=== PATIENT | female | born 1955 | race Caucasian/White ===

== ENCOUNTER 2017-06-05 13:41 | Emergency (ER) | payer OTHER ==
[~2017-06-05] VITALS: Ht 157.5 cm; Wt 65.8 kg
[~2017-06-05 13:41] MED LIST: GLIP10TA3 PO
[2017-06-05 13:43] VITALS: BP 145/85
--- NOTE | 2017-06-05 13:46 | NUR ---
Patient transferred to bed 10 via wheelchair. RN evaluating patient at bedside.
--- NOTE | 2017-06-05 13:50 | NUR ---
61/F BIB C/O LANG& DIZZINESS SINCE YESTERDAY WHEN GETTING UP FROM BED WITH N/V. HX DM, HIGH CHOLESTEROL. SKIN IS PINK/WARM/DRY; AAOX4 WITH EVEN AND STEADY GAIT; LUNGS CLEAR BL; PT DENIES ANY FEVER, CP, SOB, OR COUGH AT THIS TIME; PATIENT STATES PAIN OF 5/10 AT THIS TIME; PATIENT POSITIONED FOR COMFORT; HOB ELEVATED; BEDRAILS UP X2; BED DOWN. ER MD MADE AWARE OF PT STATUS.
--- NOTE | 2017-06-05 14:15 | NUR ---
Dr. Aguilera at bedside evaluating patient.
[2017-06-05 14:19] LABS: BASOPHILS # (AUTO) 0.1 K/uL (0.00-0.22); BASOPHILS % (AUTO) 1.4 % (0.0-2.0); EOSINOPHILS # (AUTO) 0.2 K/uL (0-0.4); EOSINOPHILS % (AUTO) 3.1 % (0.0-4.0); HEMATOCRIT 36.1 % (36-48); LYMPHOCYTES # (AUTO) 2.4 K/uL (2.5-16.5); LYMPHOCYTES % (AUTO) 32.7 % (20.5-51.1); MEAN CORPUSCULAR HEMOGLOBIN 29 pg (27-31); MEAN CORPUSCULAR HGB CONC 33 g/dL (33-37); MEAN CORPUSCULAR VOLUME 87 fL (80-94); MONOCYTES # (AUTO) 0.5 K/uL (0.8-1.0); MONOCYTES % (AUTO) 6.6 % (1.7-9.3); NEUTROPHILS # (AUTO) 4.3 K/uL (1.8-7.7); NEUTROPHILS % (AUTO) 56.2 % (42.2-75.2); PLATELET COUNT (AUTO) 272 K/uL (140-450); RED BLOOD CELL COUNT(AUTO) 4.16 MIL/uL (4.20-5.40); RED CELL DISTRIBUTION WIDTH 12.8 % (11.6-13.7); WHITE BLOOD COUNT (AUTO) 7.5 K/uL (4.8-10.8)
[2017-06-05] MEDS ORDERED: LORazepam 0.5 MG TAB PO ONE (14:20)
[2017-06-05] MEDS ORDERED: MECLIZINE 25 MG TAB PO ONE (14:20)
[2017-06-05 14:37] LABS: ACETONE, SERUM NEGATIVE (NEGATIVE)
[2017-06-05 14:41] LABS: LIPASE 86 U/L (73-393)
[2017-06-05 15:05] LABS: ANION GAP 13.2 (8-16); CARBON DIOXIDE 25.3 mmol/L (21-32); CREATININE 0.6 mg/dL (0.6-1.3); POTASSIUM 3.5 mmol/L (3.5-5.1)
[2017-06-05 15:12] LABS: ALBUMIN 3.4 g/dL (3.4-5.0); TOTAL BILIRUBIN 0.5 mg/dL (0.0-1.0)
[2017-06-05 15:55] VITALS: BP 150/68
--- NOTE | 2017-06-05 15:55 | NUR ---
Patient discharged with BP 150/68; HA3/10 AT THIS TIME, MD MADE AWARE. Written and verbal after care instructions given and explained. Patient alert, oriented and verbalized understanding of instructions. Ambulatory with steady gait. All questions addressed prior to discharge. ID band removed. Patient advised to follow up with PMD. Rx of MECLIZINE given. Patient educated on indication of medication including possible reaction and side effects. Opportunity to ask questions provided and answered.
== END 2017-06-05 15:55 | disposition home or self-care (01) ==
LOC: MED 13:41
DX: H81.10 Benign paroxysmal vertigo, unspecified ear (principal); R11.2 Nausea with vomiting, unspecified; R05 Cough; E11.9 Type 2 diabetes mellitus without complications; E78.00 Pure hypercholesterolemia, unspecified; Z79.84 Long term (current) use of oral hypoglycemic drugs
CPT/HCPCS: 36415; 80053; 82009; 82948; 83690; 83880; 84484; 85025; 99284; J8597

== ENCOUNTER 2018-01-04 17:45 | Emergency (ER) | payer OTHER ==
[~2018-01-04] VITALS: Ht 157.5 cm; Wt 68.9 kg
[2018-01-04 17:50] VITALS: BP 111/68
--- NOTE | 2018-01-04 18:00 | NUR ---
PT W/C TO BED 11. REPORTED GIVEN TO RAJESH ZAMARRIPA.
--- NOTE | 2018-01-04 18:02 | NUR ---
PATIENT PRESENTS TO ED WITH C/O LEFT KNEE PAIN & SWELLING X TODAY. PT TRIPPED OVER METAL BAR & FELL. AAOX4 WITH EVEN AND STEADY GAIT; LUNGS CLEAR BL; HR EVEN AND REGULAR; PT DENIES ANY FEVER, CP, SOB, OR COUGH AT THIS TIME; SKIN IS PINK/WARM/DRY;PATIENT STATES PAIN OF 5/10 AT THIS TIME; VSS; PATIENT POSITIONED FOR COMFORT; HOB ELEVATED; BEDRAILS UP X2; BED DOWN. ER MD MADE AWARE OF PT STATUS.
[2018-01-04] MEDS ORDERED: KETOROLAC 60 MG/2 ML VIAL IM ONE (18:15)
[2018-01-04] MEDS ORDERED: HYDROcodone/APAP 5/325 MG 1 TAB TAB PO ONE (18:15)
--- NOTE | 2018-01-04 18:23 | NUR ---
X RAY AT BEDSIDE
--- NOTE | 2018-01-04 18:46 | NUR ---
Patient being reevaluated by DR ERAZO at bedside.
[2018-01-04 19:00] VITALS: BP 110/68
--- NOTE | 2018-01-04 19:00 | NUR ---
Patient discharged with v/s stable. Written and verbal after care instructions given and explained. Patient alert, oriented and verbalized understanding of instructions. Ambulatory with steady gait. All questions addressed prior to discharge. ID band removed. Patient advised to follow up with PMD. Rx of NORCO, NAPROSYN given. Patient educated on indication of medication including possible reaction and side effects. Opportunity to ask questions provided and answered.
== END 2018-01-04 19:00 | disposition home or self-care (01) ==
LOC: MED 17:45
DX: S80.02XA Contusion of left knee, initial encounter (principal); R07.89 Other chest pain; E11.9 Type 2 diabetes mellitus without complications; Z79.84 Long term (current) use of oral hypoglycemic drugs; Z90.49 Acquired absence of other specified parts of digestive tract; W18.09XA Striking against other object with subsequent fall, initial encounter; Y93.89 Activity, other specified; Y92.89 Other specified places as the place of occurrence of the external cause; Y99.8 Other external cause status
CPT/HCPCS: 29515; 73562; 96372; 99284; J1885; Q0092

== ENCOUNTER 2018-06-06 14:12 | Emergency (ER) | payer OTHER ==
[~2018-06-06] VITALS: Ht 154.9 cm; Wt 70.8 kg
[2018-06-06 14:29] VITALS: BP 156/74
[2018-06-06] MEDS ORDERED: IBUPROFEN 400 MG TAB PO ONE (15:20)
[2018-06-06] MEDS ORDERED: HYDROcodone/APAP 5/325 MG 1 TAB TAB PO ONE (15:20)
--- NOTE | 2018-06-06 15:31 | NUR ---
PT TO X-RAY VIA WC
--- NOTE | 2018-06-06 15:41 | NUR ---
PATIENT PRESENTS TO ED WITH BROUGHT IN BY FAMILY PT C/O CONTINUOUS PAIN S/P MECHANICAL FALL YESTERDAY; PAIN TO RIGHT SIDE KNEE / BACK/ ABDOMEN ---DENIES N/V/D; SKIN IS PINK/WARM/DRY; AAOX4 WITH EVEN AND STEADY GAIT; LUNGS CLEAR BL; HR EVEN AND REGULAR; PT DENIES ANY FEVER, CP, SOB, OR COUGH AT THIS TIME; PATIENT STATES PAIN OF 8/10 AT THIS TIME; VSS; PATIENT POSITIONED FOR COMFORT; HOB ELEVATED; BEDRAILS UP X2; BED DOWN. ER MD MADE AWARE OF PT STATUS.
--- NOTE | 2018-06-06 15:55 | NUR ---
RETURNED FROM RADIOLOGY VIA
--- NOTE | 2018-06-06 17:50 | NUR ---
Patient discharged with v/s stable. Written and verbal after care instructions given and explained. Patient alert, oriented and verbalized understanding of instructions. Ambulatory with steady gait. All questions addressed prior to discharge. ID band removed. Patient advised to follow up with PMD. Rx of NORCO/NAPROSYN given. Patient educated on indication of medication including possible reaction and side effects. Opportunity to ask questions provided and answered.
[2018-06-06 17:51] VITALS: BP 134/81
== END 2018-06-06 17:50 | disposition home or self-care (01) ==
LOC: MED 14:12
DX: S20.20XA Contusion of thorax, unspecified, initial encounter (principal); S30.0XXA Contusion of lower back and pelvis, initial encounter; E11.9 Type 2 diabetes mellitus without complications; I10 Essential (primary) hypertension; Z90.49 Acquired absence of other specified parts of digestive tract; Z79.84 Long term (current) use of oral hypoglycemic drugs; W19.XXXA Unspecified fall, initial encounter; Y93.89 Activity, other specified; Y92.89 Other specified places as the place of occurrence of the external cause; Y99.8 Other external cause status
CPT/HCPCS: 71101; 72100; 81002; 99283; Q0092

== ENCOUNTER 2018-06-10 09:12 | Emergency (ER) | payer OTHER ==
[~2018-06-10] VITALS: Ht 157.5 cm; Wt 70.3 kg
[2018-06-10 09:14] VITALS: BP 119/79
[2018-06-10] MEDS ORDERED: MORPHINE SULFATE 4 MG/ML SYR IM ONE (09:30)
--- NOTE | 2018-06-10 09:30 | NUR ---
62 Y/O F CAME TO ED FOR C/O BACK PAIN. 11/18. S/P FALL 3 DAYS AGO. AMBULATORY. GAIT STEADY BUT AMBSULATES SLOWLY. PER PT AFTER TAKING NORCO SHE IS FINE BUT WHEN SHE GETS UP THE PAIN IS WORSE. NOTIFIED. WILL CONTINUE TO MONITOR.
--- NOTE | 2018-06-10 09:40 | NUR ---
ACCUCHECK DONE. RESUTL 156. AWARE.
[2018-06-10] MEDS ORDERED: DIAZEPAM 5 MG TAB PO ONE (10:25)
--- NOTE | 2018-06-10 11:35 | NUR ---
Patient discharged with v/s stable. Written and verbal after care instructions given and explained. Patient alert, oriented and verbalized understanding of instructions. Ambulatory with steady gait. All questions addressed prior to discharge. ID band removed. Patient advised to follow up with PMD. Rx of Valium given. Patient educated on indication of medication including possible reaction and side effects. Opportunity to ask questions provided and answered.
[2018-06-10 11:37] VITALS: BP 119/79
== END 2018-06-10 11:35 | disposition home or self-care (01) ==
LOC: MED 09:12
DX: M54.5 Low back pain (principal); I10 Essential (primary) hypertension; E11.9 Type 2 diabetes mellitus without complications; Z79.84 Long term (current) use of oral hypoglycemic drugs
CPT/HCPCS: 81002; 96372; 99283; J2270

== ENCOUNTER 2019-11-25 10:23 | Emergency (ER) | payer OTHER ==
[~2019-11-25] VITALS: Ht 157.5 cm; Wt 72.6 kg
[2019-11-25 10:25] VITALS: BP 129/84
--- NOTE | 2019-11-25 10:25 | NUR ---
PRESENTS WITH RLQ PAIN, 5/10 PAIN, PRESSURE SENSATION, NON RADIATING X 3 DAYS. EUPNIC,VSS,AMBULATORY,A/OX4. DIARREAH X 3 DAYS. DENIES DYSURIA,HEMATURIA,HEMATOCHEZIA,HEMATEMESIS. NKA. SIDE RAIL X1 SX GALLBLADDER STONES HX DM
--- NOTE | 2019-11-25 11:41 | NUR ---
Dr. Torres is evaluating the patient at bedside.
--- NOTE | 2019-11-25 11:42 | NUR ---
Patient taken to CT scan via wheelchair by tech.
--- NOTE | 2019-11-25 11:46 | NUR ---
PT TAKEN TO CT VIA WHEELCHAIR
[2019-11-25 12:03] LABS: BASOPHILS # (AUTO) 0.1 K/uL (0.00-0.22); BASOPHILS % (AUTO) 1.4 % (0.0-2.0); EOSINOPHILS # (AUTO) 0.2 K/uL (0-0.4); EOSINOPHILS % (AUTO) 3.8 % (0.0-4.0); HEMATOCRIT 33.4 % (36-48); HEMOGLOBIN 11.2 g/dL (12.0-16.0); LYMPHOCYTES # (AUTO) 2.3 K/uL (2.5-16.5); LYMPHOCYTES % (AUTO) 35.1 % (20.5-51.1); MEAN CORPUSCULAR HEMOGLOBIN 30 pg (27-31); MEAN CORPUSCULAR HGB CONC 34 g/dL (33-37); MEAN CORPUSCULAR VOLUME 89.3 fL (80-94); MONOCYTES # (AUTO) 0.4 K/uL (0.8-1.0); MONOCYTES % (AUTO) 6.9 % (1.7-9.3); NEUTROPHILS # (AUTO) 3.5 K/uL (1.8-7.7); NEUTROPHILS % (AUTO) 52.8 % (42.2-75.2); PLATELET COUNT (AUTO) 314 K/uL (140-450); RED BLOOD CELL COUNT(AUTO) 3.74 MIL/uL (4.20-5.40); RED CELL DISTRIBUTION WIDTH 14.4 % (11.6-13.7); WHITE BLOOD COUNT (AUTO) 6.5 K/uL (4.8-10.8)
[2019-11-25 12:29] LABS: APPEARANCE,URINE CLEAR (CLEAR); BILIRUBIN,URINE NEGATIVE (NEGATIVE); BLOOD, URINE NEGATIVE (NEGATIVE); COLOR,URINE YELLOW (YELLOW); LEUKOCYTE ESTERASE ,URINE NEGATIVE (NEGATIVE); NITRITE, URINE NEGATIVE (NEGATIVE); PH,URINE 6.5 (5.0-9.0); UGLUCOSE NEGATIVE (NEGATIVE)
[2019-11-25 12:44] LABS: ALBUMIN 3.7 g/dL (3.4-5.0); ANION GAP 11.5 (8-16); CARBON DIOXIDE 28.9 mmol/L (21-32); POTASSIUM 5.4 mmol/L (3.5-5.1); TOTAL BILIRUBIN 0.4 mg/dL (0.0-1.0)
[2019-11-25 12:58] VITALS: BP 110/68
--- NOTE | 2019-11-25 12:58 | NUR ---
Patient discharged with v/s stable. Written and verbal after care instructions given and explained in bengali by myself. Copy of labs and CT provided. Patient verbalized understanding. Ambulatory with steady gait. All questions addressed prior to discharge. Advised to follow up with PMD.
== END 2019-11-25 12:58 | disposition home or self-care (01) ==
LOC: MED 10:23
DX: A08.4 Viral intestinal infection, unspecified (principal); E11.9 Type 2 diabetes mellitus without complications; I10 Essential (primary) hypertension; Z79.84 Long term (current) use of oral hypoglycemic drugs
CPT/HCPCS: 36415; 80053; 81003; 82150; 83690; 85025; 99284

== ENCOUNTER 2020-04-30 09:15 | Emergency (ER) | payer OTHER ==
[~2020-04-30] VITALS: Ht 162.6 cm; Wt 70.8 kg
[2020-04-30 09:20] VITALS: BP 151/110
--- NOTE | 2020-04-30 09:23 | NUR ---
PT TAKEN TO BED 7.
--- NOTE | 2020-04-30 09:48 | NUR ---
Dr. Cruz is evaluating the patient at bedside.
[2020-04-30] MEDS: KETOROLAC 15 MG/ML VIAL IVP ONE ×2 (09:50→10:09)
[2020-04-30] MEDS ORDERED: cefTRIAXone 1,000 MG VIAL ONE (10:07)
[2020-04-30 10:14] LABS: BASOPHILS # (AUTO) 0.1 K/uL (0.00-0.22); BASOPHILS % (AUTO) 2.5 % (0.0-2.0); EOSINOPHILS # (AUTO) 0.2 K/uL (0-0.4); EOSINOPHILS % (AUTO) 3.5 % (0.0-4.0); HEMOGLOBIN 10.9 g/dL (12.0-16.0); LYMPHOCYTES # (AUTO) 1.8 K/uL (2.5-16.5); MEAN CORPUSCULAR HEMOGLOBIN 29 pg (27-31); MEAN CORPUSCULAR HGB CONC 33 g/dL (33-37); MEAN CORPUSCULAR VOLUME 87.3 fL (80-94); MONOCYTES # (AUTO) 0.4 K/uL (0.8-1.0); MONOCYTES % (AUTO) 7.8 % (1.7-9.3); NEUTROPHILS % (AUTO) 53.2 % (42.2-75.2); PLATELET COUNT (AUTO) 388 K/uL (140-450); RED BLOOD CELL COUNT(AUTO) 3.78 MIL/uL (4.20-5.40); WHITE BLOOD COUNT (AUTO) 5.6 K/uL (4.8-10.8)
--- NOTE | 2020-04-30 10:26 | NUR ---
Patient taken to CT scan via gurney by [employer].
[2020-04-30 10:33] LABS: APPEARANCE,URINE CLEAR (CLEAR); BILIRUBIN,URINE NEGATIVE (NEGATIVE); BLOOD, URINE NEGATIVE (NEGATIVE); COLOR,URINE YELLOW (YELLOW); LEUKOCYTE ESTERASE ,URINE NEGATIVE (NEGATIVE); NITRITE, URINE NEGATIVE (NEGATIVE); UGLUCOSE NEGATIVE (NEGATIVE)
[2020-04-30 10:37] LABS: ALBUMIN 3.8 g/dL (3.4-5.0); ANION GAP 14.2 (8-16); CARBON DIOXIDE 25.8 mmol/L (21-32); CREATININE 0.7 mg/dL (0.6-1.3); TOTAL BILIRUBIN 0.4 mg/dL (0.0-1.0)
--- NOTE | 2020-04-30 10:37 | NUR ---
Patient returned from CT scan.
--- NOTE | 2020-04-30 11:50 | NUR ---
Patient discharged with v/s stable, IN NAD. Written and verbal after care instructions given and explained. Patient alert, oriented and verbalized understanding of instructions. Ambulatory with steady gait. All questions addressed prior to discharge. ID band removed, IV ACCESS D/C'D. Patient advised to follow up with PMD. Rx of naprosyn, zofran, ABX given. Patient educated on indication of medication including possible reaction and side effects. Opportunity to ask questions provided and answered. PT IN AGREEMENT WITH PLAN OF CARE.
[2020-04-30 11:53] VITALS: BP 132/69
--- NOTE | 2020-05-02 02:22 | NUR ---
LATE ENTRY: COVID + RESULT RECEIVED. HARD COPY REQUESTED AND SENT TO INFECTION CONTROL.
== END 2020-04-30 12:00 | disposition home or self-care (01) ==
LOC: MED 09:15
DX: R10.9 Unspecified abdominal pain (principal); Z20.828 Contact with and (suspected) exposure to other viral communicable diseases; R11.0 Nausea; R35.0 Frequency of micturition; R39.15 Urgency of urination; R30.0 Dysuria; E11.9 Type 2 diabetes mellitus without complications; I10 Essential (primary) hypertension; Z79.84 Long term (current) use of oral hypoglycemic drugs; Z98.890 Other specified postprocedural states; Z90.710 Acquired absence of both cervix and uterus
CPT/HCPCS: 36415; 74176; 80053; 81003; 83605; 83690; 85025; 87040; 87086; 96365; 99284; J0696; J1885; J7060; U0003

== ENCOUNTER 2020-08-16 20:50 | Emergency (ER) | payer OTHER ==
[~2020-08-16] VITALS: Ht 162.6 cm; Wt 72.6 kg
[2020-08-16 20:56] VITALS: BP 126/69
--- NOTE | 2020-08-16 20:56 | NUR ---
TO BED AMBULATORY
[2020-08-16 21:25] VITALS: BP 126/69
--- NOTE | 2020-08-16 21:25 | NUR ---
COVERING PRIMARY RN. SEE COMPLETE ASSESSMENT
[2020-08-16] MEDS ORDERED: KETOROLAC 15 MG/ML VIAL IM ONE (21:40)
[2020-08-16] MEDS ORDERED: methocarbamoL 500 MG TAB PO ONE (21:40)
--- NOTE | 2020-08-16 21:52 | NUR ---
RAD AT BEDSIDE
[2020-08-16] MEDS ORDERED: METH-1681 PO (22:44)
[2020-08-16] MEDS ORDERED: NAPR-54 PO (22:44)
--- NOTE | 2020-08-16 22:58 | NUR ---
Patient discharged with v/s stable. Written and verbal after care instructions given and explained. Patient alert, oriented and verbalized understanding of instructions. Ambulatory with steady gait. All questions addressed prior to discharge. ID band removed. Patient advised to follow up with PMD. Rx of ROBAXIN AND NAPROSYN given. Patient educated on indication of medication including possible reaction and side effects. Opportunity to ask questions provided and answered.
== END 2020-08-16 22:58 | disposition home or self-care (01) ==
LOC: MED 20:50
DX: M25.511 Pain in right shoulder (principal); R05 Cough; R42 Dizziness and giddiness; E11.9 Type 2 diabetes mellitus without complications; I10 Essential (primary) hypertension; Z79.82 Long term (current) use of aspirin
CPT/HCPCS: 71045; 73010; 96372; 99284; J1885

== ENCOUNTER 2021-09-11 14:28 | Emergency (ER) | payer OTHER, MEDICAID ==
[~2021-09-11] VITALS: Ht 157.5 cm; Wt 70.1 kg
[~2021-09-11 14:28] MED LIST changes: +METH-1681 PO; +NAPR-54 PO
[2021-09-11 14:38] VITALS: BP 106/50
[2021-09-11] MEDS ORDERED: HYDROcodone/APAP 5/325 MG 1 TAB TAB PO ONE (15:45)
[2021-09-11] MEDS ORDERED: KETOROLAC 30 MG/ML VIAL IM ONE (15:45)
[2021-09-11] MEDS ORDERED: cefTRIAXone 1,000 MG in LIDOCAINE MPF 1% 2.1 ML IM ONE (15:45)
[2021-09-11] MEDS ORDERED: LIDOCAINE MPF 1% 5 ML ONE (16:18)
[2021-09-11] MEDS ORDERED: cefTRIAXone 1,000 MG VIAL ONE (16:18)
[2021-09-11] MEDS ORDERED: CYCL-711 PO (16:36)
[2021-09-11] MEDS ORDERED: LID5T TP (16:36)
[2021-09-11] MEDS ORDERED: CEPH-588 PO (16:36)
[2021-09-11] MEDS ORDERED: IBUP-2213 PO (16:36)
--- NOTE | 2021-09-11 16:40 | NUR ---
Patient discharged with v/s stable. Written and verbal after care instructions given and explained. Patient alert, oriented and verbalized understanding of instructions. Ambulatory with steady gait. All questions addressed prior to discharge. ID band removed. Patient advised to follow up with PMD. Rx of KEFLEX, FLEXERIL, MOTRIN, LIDODERM 5% PATCH given. Patient educated on indication of medication including possible reaction and side effects. Opportunity to ask questions provided and answered.
== END 2021-09-11 16:40 | disposition home or self-care (01) ==
LOC: MED 14:28
DX: M54.6 Pain in thoracic spine (principal); N39.0 Urinary tract infection, site not specified; M54.50 Low back pain, unspecified; E11.9 Type 2 diabetes mellitus without complications; I10 Essential (primary) hypertension; Z79.4 Long term (current) use of insulin
CPT/HCPCS: 81002; 87086; 96372; 99284; J0696; J1885; J2001

== ENCOUNTER 2022-07-30 15:09 | Emergency (ER) | payer OTHER, MEDICAID ==
[~2022-07-30] VITALS: Ht 157.5 cm; Wt 67.1 kg
[~2022-07-30 15:09] MED LIST changes: +CEPH-588 PO; +CYCL-711 PO; +IBUP-2213 PO; +LID5T TP
[2022-07-30 15:21] VITALS: BP 115/64
--- NOTE | 2022-07-30 16:42 | NUR ---
PT. WALKED TO ROOM 3 WITH NO DISTRESS OR DIFFICULTY
[2022-07-30] MEDS ORDERED: LIDO15SO4 PO (17:57)
[2022-07-30] MEDS ORDERED: PROM118S5 PO (17:57)
[2022-07-30] MEDS ORDERED: SUD30 PO (17:57)
[2022-07-30] MEDS ORDERED: IBUP-2213 PO (17:57)
[2022-07-30 18:20] VITALS: BP 115/64
--- NOTE | 2022-07-30 18:21 | NUR ---
Patient discharged with v/s stable. Written and verbal after care instructions given and explained. Patient alert, oriented and verbalized understanding of instructions. Ambulatory with steady gait. All questions addressed prior to discharge. ID band removed. Patient advised to follow up with PMD. Rx of IBUPROFEN, LIDOCAINE HCL, PROMETHAZINE, SUDAFED given. Patient educated on indication of medication including possible reaction and side effects. Opportunity to ask questions provided and answered.
== END 2022-07-30 18:20 | disposition home or self-care (01) ==
LOC: MED 15:09
DX: J20.9 Acute bronchitis, unspecified (principal); B34.9 Viral infection, unspecified; H92.03 Otalgia, bilateral; E11.9 Type 2 diabetes mellitus without complications; Z79.4 Long term (current) use of insulin; Z79.899 Other long term (current) drug therapy
CPT/HCPCS: 71045; 99283

== ENCOUNTER 2022-10-23 08:56 | Emergency (ER) | payer OTHER, MEDICAID ==
[~2022-10-23] VITALS: Ht 154.9 cm; Wt 56.7 kg
[~2022-10-23 08:56] MED LIST changes: +LIDO15SO4 PO; +PROM118S5 PO; +SUD30 PO
[2022-10-23 09:06] VITALS: BP 121/61; PULSE 77; RESP 14; TEMP 97.1; O2SAT 98
[2022-10-23 11:18] LABS: ALBUMIN 3.3 g/dL (3.4-5.0); ANION GAP 9.7 (8-16); ASPARTATE AMINOTRANSFERASE 19 U/L (15-37); CHLORIDE 104 mmol/L (98-107); CREATININE 0.7 mg/dL (0.6-1.3); GFR ARICAN-AMERICAN 108 mL/min (>90); GLUCOSE 200 mg/dL (74-106); MAGNESIUM 1.5 mg/dL (1.8-2.4); POTASSIUM 4.7 mmol/L (3.5-5.1); SODIUM SERUM 137 mmol/L (136-145); THYROID STIMULATING HORMONE 0.84 uIU/mL (0.34-3.74); TOTAL BILIRUBIN 0.3 mg/dL (0.0-1.0); UREA NITROGEN, BLOOD 21 mg/dL (7-18)
[2022-10-23 11:29] LABS: BASOPHILS % (AUTO) 0.7 % (0.0-2.0); EOSINOPHILS # (AUTO) 0.3 K/uL (0-0.4); EOSINOPHILS % (AUTO) 5.4 % (0.0-4.0); HEMATOCRIT 31.6 % (36-48); HEMOGLOBIN 10.7 g/dL (12.0-16.0); LYMPHOCYTES # (AUTO) 1.8 K/uL (2.5-16.5); LYMPHOCYTES % (AUTO) 30.5 % (20.5-51.1); MEAN CORPUSCULAR HEMOGLOBIN 29 pg (27-31); MEAN CORPUSCULAR HGB CONC 34 g/dL (33-37); MEAN CORPUSCULAR VOLUME 86.8 fL (80-94); MONOCYTES # (AUTO) 0.5 K/uL (0.8-1.0); MONOCYTES % (AUTO) 7.8 % (1.7-9.3); NEUTROPHILS # (AUTO) 3.4 K/uL (1.8-7.7); NEUTROPHILS % (AUTO) 55.6 % (42.2-75.2); PLATELET COUNT (AUTO) 285 K/uL (140-450); RED BLOOD CELL COUNT(AUTO) 3.64 MIL/uL (4.20-5.40); RED CELL DISTRIBUTION WIDTH 14.6 % (11.6-13.7)
[2022-10-23] MEDS ORDERED: MAG SULF 2000 MG/WATER PREMIX 50 ML IV ONE (11:40)
[2022-10-23] MEDS ORDERED: NACL 0.9% 500 ML IV ONE (11:40)
[2022-10-23] MEDS ORDERED: MAGNESIUM OXIDE 400 MG TAB PO ONE (12:00)
[2022-10-23] MEDS ORDERED: FERR-20 PO (12:00)
--- NOTE | 2022-10-23 12:08 | NUR ---
[facility] marc [facility]. gave order for dc and requested pt be dc'd. ACI given and reviewed with pt. Pt verbalized understanding and will follow up with primary. Pt is a/o x 4, vss, no ss of acute distress, breathing equal and unlabored, speech clear. Px reviewed with pt.
[2022-10-23 12:10] VITALS: BP 132/74; PULSE 79; RESP 17; TEMP 97.6; O2SAT 98
--- NOTE | 2022-10-23 12:12 | NUR ---
Patient discharged with v/s stable. Written and verbal after care instructions given and explained. Patient verbalized understanding. Ambulatory with steady gait. All questions addressed prior to discharge. Advised to follow up with PMD.
== END 2022-10-23 12:12 | disposition home or self-care (01) ==
LOC: MED 08:56
DX: R53.1 Weakness (principal); D64.9 Anemia, unspecified; E83.42 Hypomagnesemia; M25.512 Pain in left shoulder; E11.9 Type 2 diabetes mellitus without complications; Z79.899 Other long term (current) drug therapy; Z79.84 Long term (current) use of oral hypoglycemic drugs
CPT/HCPCS: 36415; 80053; 83735; 84443; 84484; 85025; 93005; 99284

== ENCOUNTER 2023-03-10 13:44 | Inpatient (IN) | payer OTHER, MEDICAID ==
[~2023-03-10] VITALS: Ht 157.5 cm; Wt 66.2 kg
[~2023-03-10 13:44] MED LIST changes: +FERR-20 PO
[2023-03-10 14:05] VITALS: BP 128/66; PULSE 77; RESP 20; TEMP 98.2; O2SAT 100
[2023-03-10] MEDS ORDERED: KETOROLAC 30 MG/ML VIAL IM ONE (15:40)
[2023-03-10] MEDS ORDERED: HYDROcodone/APAP 5/325 MG 1 TAB TAB PO ONE (15:40)
[2023-03-10] MEDS ORDERED: MORPHINE SULFATE 4 MG/ML SYR IVP SCH (16:54)
[2023-03-10 17:46] LABS: BASOPHILS # (AUTO) 0.1 K/uL (0.00-0.22); BASOPHILS % (AUTO) 0.5 % (0.0-2.0); EOSINOPHILS # (AUTO) 0.2 K/uL (0-0.4); EOSINOPHILS % (AUTO) 1.7 % (0.0-4.0); HEMATOCRIT 28.9 % (36-48); HEMOGLOBIN 9.6 g/dL (12.0-16.0); LYMPHOCYTES # (AUTO) 1.5 K/uL (2.5-16.5); LYMPHOCYTES % (AUTO) 12.1 % (20.5-51.1); MEAN CORPUSCULAR HEMOGLOBIN 29 pg (27-31); MEAN CORPUSCULAR HGB CONC 33 g/dL (33-37); MONOCYTES # (AUTO) 0.5 K/uL (0.8-1.0); MONOCYTES % (AUTO) 3.7 % (1.7-9.3); NEUTROPHILS # (AUTO) 10.1 K/uL (1.8-7.7); PLATELET COUNT (AUTO) 278 K/uL (140-450); RED BLOOD CELL COUNT(AUTO) 3.32 MIL/uL (4.20-5.40); RED CELL DISTRIBUTION WIDTH 14.2 % (11.6-13.7); WHITE BLOOD COUNT (AUTO) 12.3 K/uL (4.8-10.8)
[2023-03-10 18:10] LABS: ALBUMIN 3.9 g/dL (3.4-5.0); ANION GAP 16.3 (8-16); CALCIUM 9.2 mg/dL (8.5-10.1); CREATININE 0.8 mg/dL (0.6-1.3); POTASSIUM 4.3 mmol/L (3.5-5.1); TOTAL BILIRUBIN 0.3 mg/dL (0.0-1.0); TOTAL PROTEIN, SERUM 7.6 g/dL (6.4-8.2)
[2023-03-10 18:18] LABS: INR 1.03 (0.8-1.2); PROTHROMBIN TIME 10.8 secs (10.8-13.4)
[2023-03-10] MEDS ORDERED: MORPHINE SULFATE 2 MG/ML SYR IVP PRN (19:20)
[2023-03-10] MEDS ORDERED: MAGNESIUM OXIDE 400 MG TAB PO PRN (19:20)
[2023-03-10] MEDS ORDERED: MAG SULF 2000 MG/WATER PREMIX 50 ML IV PRN (19:20)
[2023-03-10] MEDS ORDERED: ACETAMINOPHEN 325 MG TAB PO PRN (19:20)
[2023-03-10] MEDS ORDERED: POTASSIUM CHLORIDE 10 MEQ TABER PO PRN (19:20)
[2023-03-10] MEDS ORDERED: KCL 20 MEQ IN 100 mL PREMIX 200 ML IV PRN (19:20)
[2023-03-10] MEDS ORDERED: DEXTROSE 50% 50 ML SYR IVP PRN (19:30)
[2023-03-10 19:49] VITALS: O2SAT 100
[2023-03-10 20:30] VITALS: BP 137/57; PULSE 81; RESP 18; TEMP 98.1; O2SAT 100; O2SAT 98
[2023-03-10] MEDS: BLOOD GLUCOSE MONITORING 1 DEV DEV FS SCH (21:00)
[2023-03-10] MEDS: INSULIN LISPRO SLIDING SCALE 100 UNITS/ML VIAL SUBQ PRN (22:11)
[2023-03-11 04:18] VITALS: BP 133/61; PULSE 84; RESP 19; TEMP 98; O2SAT 96
[2023-03-11 06:45] LABS: BASOPHILS # (AUTO) 0.1 K/uL (0.00-0.22); BASOPHILS % (AUTO) 0.8 % (0.0-2.0); EOSINOPHILS # (AUTO) 0.2 K/uL (0-0.4); EOSINOPHILS % (AUTO) 3.1 % (0.0-4.0); HEMATOCRIT 25.6 % (36-48); HEMOGLOBIN 8.7 g/dL (12.0-16.0); LYMPHOCYTES # (AUTO) 1.3 K/uL (2.5-16.5); LYMPHOCYTES % (AUTO) 18.5 % (20.5-51.1); MEAN CORPUSCULAR HEMOGLOBIN 30 pg (27-31); MEAN CORPUSCULAR HGB CONC 34 g/dL (33-37); MEAN CORPUSCULAR VOLUME 87.3 fL (80-94); MONOCYTES # (AUTO) 0.4 K/uL (0.8-1.0); MONOCYTES % (AUTO) 6.3 % (1.7-9.3); NEUTROPHILS # (AUTO) 5.1 K/uL (1.8-7.7); NEUTROPHILS % (AUTO) 71.3 % (42.2-75.2); PLATELET COUNT (AUTO) 243 K/uL (140-450); RED BLOOD CELL COUNT(AUTO) 2.93 MIL/uL (4.20-5.40); RED CELL DISTRIBUTION WIDTH 14.3 % (11.6-13.7); WHITE BLOOD COUNT (AUTO) 7.1 K/uL (4.8-10.8)
[2023-03-11] MEDS: BLOOD GLUCOSE MONITORING 1 DEV DEV FS SCH ×4 (06:45→20:50)
[2023-03-11 07:42] LABS: ALBUMIN 3.1 g/dL (3.4-5.0); ANION GAP 13.1 (8-16); CALCIUM 8.9 mg/dL (8.5-10.1); CARBON DIOXIDE 27.2 mmol/L (21-32); CREATININE 0.7 mg/dL (0.6-1.3); PHOSPHORUS 4.3 mg/dL (2.5-4.9); POTASSIUM 4.3 mmol/L (3.5-5.1); TOTAL BILIRUBIN 0.4 mg/dL (0.0-1.0); TOTAL PROTEIN, SERUM 6.6 g/dL (6.4-8.2)
[2023-03-11 08:00] VITALS: PULSE 84; RESP 19; O2SAT 96
[2023-03-11] MEDS: HYDROcodone/APAP 5/325 MG 1 TAB TAB PO PRN ×2 (08:50→18:11)
[2023-03-11] MEDS: INSULIN LISPRO SLIDING SCALE 100 UNITS/ML VIAL SUBQ PRN ×2 (11:53→20:55)
[2023-03-11 16:00] VITALS: BP 137/67; PULSE 78; RESP 19; TEMP 98.7; O2SAT 95
[2023-03-11] MEDS: IBUPROFEN 800 MG TAB PO SCH (17:23)
[2023-03-11 20:00] VITALS: BP 116/58; PULSE 80; RESP 18; TEMP 98; O2SAT 94
[2023-03-12] MEDS: BLOOD GLUCOSE MONITORING 1 DEV DEV FS SCH ×4 (06:34→20:06)
[2023-03-12 07:22] LABS: BASOPHILS # (AUTO) 0.1 K/uL (0.00-0.22); BASOPHILS % (AUTO) 1.2 % (0.0-2.0); EOSINOPHILS # (AUTO) 0.4 K/uL (0-0.4); EOSINOPHILS % (AUTO) 5.9 % (0.0-4.0); HEMATOCRIT 23.9 % (36-48); LYMPHOCYTES # (AUTO) 1.9 K/uL (2.5-16.5); MEAN CORPUSCULAR HEMOGLOBIN 29 pg (27-31); MEAN CORPUSCULAR HGB CONC 34 g/dL (33-37); MEAN CORPUSCULAR VOLUME 87.1 fL (80-94); MONOCYTES # (AUTO) 0.6 K/uL (0.8-1.0); MONOCYTES % (AUTO) 9.2 % (1.7-9.3); NEUTROPHILS # (AUTO) 3.6 K/uL (1.8-7.7); NEUTROPHILS % (AUTO) 54.7 % (42.2-75.2); PLATELET COUNT (AUTO) 236 K/uL (140-450); RED BLOOD CELL COUNT(AUTO) 2.75 MIL/uL (4.20-5.40); RED CELL DISTRIBUTION WIDTH 14.3 % (11.6-13.7); WHITE BLOOD COUNT (AUTO) 6.6 K/uL (4.8-10.8)
[2023-03-12 08:00] VITALS: BP 134/60; PULSE 73; PULSE 82; RESP 17; RESP 20; TEMP 97.9; O2SAT 98; O2SAT 99
[2023-03-12] MEDS: IBUPROFEN 800 MG TAB PO SCH ×3 (08:15→17:31)
[2023-03-12 08:24] LABS: ALBUMIN 3.1 g/dL (3.4-5.0); ANION GAP 12.8 (8-16); CALCIUM 8.5 mg/dL (8.5-10.1); CARBON DIOXIDE 27.5 mmol/L (21-32); CREATININE 0.7 mg/dL (0.6-1.3); PHOSPHORUS 4.5 mg/dL (2.5-4.9); POTASSIUM 4.3 mmol/L (3.5-5.1); TOTAL BILIRUBIN 0.4 mg/dL (0.0-1.0); TOTAL PROTEIN, SERUM 6.6 g/dL (6.4-8.2)
[2023-03-12] MEDS: INSULIN LISPRO SLIDING SCALE 100 UNITS/ML VIAL SUBQ PRN ×2 (11:39→16:55)
[2023-03-12] MEDS ORDERED: ACET-9525 PO (12:37)
[2023-03-12] MEDS ORDERED: HEPA500056 SUBQ (12:37)
[2023-03-12] MEDS ORDERED: ACET-1182 PO (12:37)
[2023-03-12 13:29] LABS: APPEARANCE,URINE CLEAR (CLEAR); BILIRUBIN,URINE NEGATIVE (NEGATIVE); BLOOD, URINE NEGATIVE (NEGATIVE); COLOR,URINE YELLOW (YELLOW); LEUKOCYTE ESTERASE ,URINE NEGATIVE (NEGATIVE); NITRITE, URINE NEGATIVE (NEGATIVE); PROTEIN,URINE NEGATIVE (NEGATIVE); UGLUCOSE NEGATIVE (NEGATIVE); UROBILINOGEN,URINE 0.2 EU/dL (0.2 - 1)
[2023-03-12 16:00] VITALS: BP 123/73; PULSE 70; RESP 18; TEMP 97.8; O2SAT 99
[2023-03-12 20:00] VITALS: BP 141/43; PULSE 72; RESP 18; TEMP 97.3; O2SAT 96
[2023-03-13 04:00] VITALS: BP 143/73; PULSE 96; RESP 18; TEMP 98.9; O2SAT 98
[2023-03-13] MEDS: BLOOD GLUCOSE MONITORING 1 DEV DEV FS SCH ×2 (06:32→12:25)
[2023-03-13 07:12] LABS: BASOPHILS # (AUTO) 0.1 K/uL (0.00-0.22); BASOPHILS % (AUTO) 1.1 % (0.0-2.0); EOSINOPHILS # (AUTO) 0.4 K/uL (0-0.4); EOSINOPHILS % (AUTO) 6.8 % (0.0-4.0); HEMATOCRIT 25.8 % (36-48); HEMOGLOBIN 8.7 g/dL (12.0-16.0); LYMPHOCYTES # (AUTO) 1.8 K/uL (2.5-16.5); LYMPHOCYTES % (AUTO) 27.2 % (20.5-51.1); MEAN CORPUSCULAR HEMOGLOBIN 30 pg (27-31); MEAN CORPUSCULAR HGB CONC 34 g/dL (33-37); MEAN CORPUSCULAR VOLUME 87.9 fL (80-94); MONOCYTES # (AUTO) 0.6 K/uL (0.8-1.0); NEUTROPHILS # (AUTO) 3.6 K/uL (1.8-7.7); NEUTROPHILS % (AUTO) 55.9 % (42.2-75.2); PLATELET COUNT (AUTO) 253 K/uL (140-450); RED BLOOD CELL COUNT(AUTO) 2.93 MIL/uL (4.20-5.40); RED CELL DISTRIBUTION WIDTH 13.7 % (11.6-13.7); WHITE BLOOD COUNT (AUTO) 6.5 K/uL (4.8-10.8)
[2023-03-13 08:00] VITALS: PULSE 74; RESP 17; O2SAT 96
[2023-03-13] MEDS: IBUPROFEN 800 MG TAB PO SCH ×2 (08:07→12:58)
[2023-03-13 08:14] LABS: ALBUMIN 3.2 g/dL (3.4-5.0); ANION GAP 13.2 (8-16); CALCIUM 8.8 mg/dL (8.5-10.1); CARBON DIOXIDE 27.8 mmol/L (21-32); CREATININE 0.7 mg/dL (0.6-1.3); TOTAL BILIRUBIN 0.4 mg/dL (0.0-1.0); TOTAL PROTEIN, SERUM 6.9 g/dL (6.4-8.2)
[2023-03-13 11:43] VITALS: BP 124/86; PULSE 82; RESP 18; TEMP 97.5
== END 2023-03-13 16:40 | DRG 563 ==
LOC: MED 13:44 → MTU 20:58
PROVIDERS: ADMIT Internal Medicine; ATTEND Internal Medicine
DX: S82.141A Displaced bicondylar fracture of right tibia, initial encounter for closed fracture (principal); S82.491A Other fracture of shaft of right fibula, initial encounter for closed fracture; W18.39XA Other fall on same level, initial encounter; D64.9 Anemia, unspecified; R30.0 Dysuria; E11.9 Type 2 diabetes mellitus without complications; Z90.49 Acquired absence of other specified parts of digestive tract; Z79.1 Long term (current) use of non-steroidal anti-inflammatories (NSAID); Z79.899 Other long term (current) drug therapy; Y93.89 Activity, other specified; Y92.89 Other specified places as the place of occurrence of the external cause; Y99.8 Other external cause status
CPT/HCPCS: 36415; 73562; 73590; 73630; 80053; 81003; 82948; 84100; 85025; 85610; 85730; 87081; 96372; 96374; 97163-GP; 97530; 99285; J1644; J1815; J1885; J2270

== ENCOUNTER 2023-05-20 13:45 | Emergency (ER) | payer OTHER, MEDICAID ==
[~2023-05-20] VITALS: Ht 154.9 cm; Wt 65.8 kg
[~2023-05-20 13:45] MED LIST changes: +ACET-1182 PO; +ACET-9525 PO; -CEPH-588 PO; -CYCL-711 PO; +HEPA500056 SUBQ; -LID5T TP; -LIDO15SO4 PO; -METH-1681 PO; -NAPR-54 PO; -PROM118S5 PO; -SUD30 PO
[2023-05-20 13:50] VITALS: BP 112/58; PULSE 89; RESP 15; TEMP 97.8; O2SAT 100
[2023-05-20] MEDS ORDERED: ACETAMINOPHEN 325 MG TAB PO ONE (14:25)
[2023-05-20 14:32] LABS: APPEARANCE,URINE SL CLOUDY (CLEAR); BILIRUBIN,URINE NEGATIVE (NEGATIVE); BLOOD, URINE 1+ (NEGATIVE); COLOR,URINE YELLOW (YELLOW); LEUKOCYTE ESTERASE ,URINE 3+ (NEGATIVE); NITRITE, URINE POSITIVE (NEGATIVE); PROTEIN,URINE NEGATIVE (NEGATIVE); UGLUCOSE NEGATIVE (NEGATIVE); UROBILINOGEN,URINE 0.2 EU/dL (0.2 - 1)
[2023-05-20] MEDS: ACETAMINOPHEN 325 MG TAB PO STA (14:39)
[2023-05-20 14:46] LABS: BASOPHILS # (AUTO) 0.1 K/uL (0.00-0.22); BASOPHILS % (AUTO) 0.8 % (0.0-2.0); EOSINOPHILS # (AUTO) 0.2 K/uL (0-0.4); EOSINOPHILS % (AUTO) 2.2 % (0.0-4.0); HEMATOCRIT 31.1 % (36-48); HEMOGLOBIN 10.7 g/dL (12.0-16.0); LYMPHOCYTES # (AUTO) 2.1 K/uL (2.5-16.5); LYMPHOCYTES % (AUTO) 26.7 % (20.5-51.1); MEAN CORPUSCULAR HEMOGLOBIN 29 pg (27-31); MEAN CORPUSCULAR HGB CONC 34 g/dL (33-37); MEAN CORPUSCULAR VOLUME 84.8 fL (80-94); MONOCYTES # (AUTO) 0.6 K/uL (0.8-1.0); MONOCYTES % (AUTO) 7.2 % (1.7-9.3); NEUTROPHILS # (AUTO) 4.8 K/uL (1.8-7.7); NEUTROPHILS % (AUTO) 63.1 % (42.2-75.2); PLATELET COUNT (AUTO) 388 K/uL (140-450); RED BLOOD CELL COUNT(AUTO) 3.67 MIL/uL (4.20-5.40); RED CELL DISTRIBUTION WIDTH 14.6 % (11.6-13.7); WHITE BLOOD COUNT (AUTO) 7.7 K/uL (4.8-10.8)
[2023-05-20 14:48] LABS: BACTERIA,URINE FEW /HPF (None Seen); WBC,URINE 16-25 (MOD) /HPF (0-5)
[2023-05-20 14:49] LABS: MUCUS,URINE 1+ /LPF (None Seen); SQUAMOUS EPITHELIAL CELL,UR 0-3 (FEW) /LPF (0-3 (FEW))
[2023-05-20 14:56] LABS: ANION GAP 15.1 (8-16); CALCIUM 9.3 mg/dL (8.5-10.1); CARBON DIOXIDE 24.9 mmol/L (21-32); CREATININE 1.2 mg/dL (0.6-1.3)
[2023-05-20 15:00] LABS: ALBUMIN 3.4 g/dL (3.4-5.0); BILIRUBIN,DIRECT 0.1 mg/dL (0.0-0.3); TOTAL BILIRUBIN 0.3 mg/dL (0.0-1.0); TOTAL PROTEIN, SERUM 8.6 g/dL (6.4-8.2)
[2023-05-20] MEDS ORDERED: cefTRIAXone 1,000 MG VIAL ONE (15:24)
[2023-05-20 16:19] VITALS: BP 123/61; PULSE 92; RESP 20; TEMP 98.2; O2SAT 100
[2023-05-20] MEDS ORDERED: PYR100 PO (16:46)
[2023-05-20] MEDS ORDERED: IBUP-2213 PO (16:46)
[2023-05-20] MEDS ORDERED: CEPH-588 PO (16:46)
== END 2023-05-20 16:58 | disposition home or self-care (01) ==
LOC: MED 13:45
DX: N39.0 Urinary tract infection, site not specified (principal); E11.9 Type 2 diabetes mellitus without complications; Z79.4 Long term (current) use of insulin; Z79.899 Other long term (current) drug therapy
CPT/HCPCS: 36415; 74176; 80048; 80076; 81001; 83690; 85025; 87086; 96365; 99285; J0696

== ENCOUNTER 2023-09-29 18:58 | Emergency (ER) | payer OTHER, MEDICAID ==
[~2023-09-29] VITALS: Ht 154.9 cm; Wt 66.2 kg
[~2023-09-29 18:58] MED LIST changes: +CEPH-588 PO; +PYR100 PO
[2023-09-29 19:13] VITALS: BP 124/53; PULSE 74; RESP 16; TEMP 97.7; O2SAT 99
[2023-09-29] MEDS: METOCLOPRAMIDE 10 MG/2 ML INJ VIAL IVP ONE (20:13)
[2023-09-29 20:22] LABS: BASOPHILS # (AUTO) 0.1 K/uL (0.00-0.22); BASOPHILS % (AUTO) 1.2 % (0.0-2.0); EOSINOPHILS # (AUTO) 0.4 K/uL (0-0.4); EOSINOPHILS % (AUTO) 4.9 % (0.0-4.0); HEMATOCRIT 28.1 % (36-48); HEMOGLOBIN 9.4 g/dL (12.0-16.0); LYMPHOCYTES # (AUTO) 2.4 K/uL (2.5-16.5); LYMPHOCYTES % (AUTO) 33.8 % (20.5-51.1); MEAN CORPUSCULAR HEMOGLOBIN 30 pg (27-31); MEAN CORPUSCULAR HGB CONC 34 g/dL (33-37); MEAN CORPUSCULAR VOLUME 87.9 fL (80-94); MONOCYTES # (AUTO) 0.7 K/uL (0.8-1.0); MONOCYTES % (AUTO) 9.3 % (1.7-9.3); NEUTROPHILS # (AUTO) 3.7 K/uL (1.8-7.7); NEUTROPHILS % (AUTO) 50.8 % (42.2-75.2); PLATELET COUNT (AUTO) 300 K/uL (140-450); RED BLOOD CELL COUNT(AUTO) 3.19 MIL/uL (4.20-5.40); RED CELL DISTRIBUTION WIDTH 15.4 % (11.6-13.7); WHITE BLOOD COUNT (AUTO) 7.2 K/uL (4.8-10.8)
[2023-09-29 20:33] LABS: APPEARANCE,URINE CLEAR (CLEAR); BILIRUBIN,URINE NEGATIVE (NEGATIVE); BLOOD, URINE NEGATIVE (NEGATIVE); COLOR,URINE YELLOW (YELLOW); LEUKOCYTE ESTERASE ,URINE NEGATIVE (NEGATIVE); NITRITE, URINE NEGATIVE (NEGATIVE); PROTEIN,URINE NEGATIVE (NEGATIVE); UGLUCOSE NEGATIVE (NEGATIVE); UROBILINOGEN,URINE 0.2 EU/dL (0.2 - 1)
[2023-09-29 20:36] LABS: ALBUMIN 3.9 g/dL (3.4-5.0); BILIRUBIN,DIRECT 0.1 mg/dL (0.0-0.3); TOTAL BILIRUBIN 0.3 mg/dL (0.0-1.0); TOTAL PROTEIN, SERUM 7.6 g/dL (6.4-8.2)
[2023-09-29 20:47] LABS: ANION GAP 14.3 (8-16); CALCIUM 8.7 mg/dL (8.5-10.1); CARBON DIOXIDE 26.5 mmol/L (21-32); POTASSIUM 3.8 mmol/L (3.5-5.1)
[2023-09-29] MEDS: SODIUM PHOSPHATE 118 ML ENEM RC ONE (23:43)
[2023-09-29] MEDS ORDERED: GLYCERIN ADULT 1 SUPP RC ONE (23:48)
[2023-09-29] MEDS: GLYCERIN ADULT 1 SUPP RC ONE (23:53)
[2023-09-30] MEDS ORDERED: MIRABULK PO (01:31)
[2023-09-30] MEDS ORDERED: MAGN296S70 PO (01:31)
[2023-09-30 01:40] VITALS: BP 128/53; PULSE 72; RESP 16; TEMP 97.5; O2SAT 99
== END 2023-09-30 01:40 | disposition home or self-care (01) ==
LOC: MED 18:58
DX: K59.00 Constipation, unspecified (principal); R11.0 Nausea; E11.9 Type 2 diabetes mellitus without complications; I10 Essential (primary) hypertension; Z79.82 Long term (current) use of aspirin; Z79.1 Long term (current) use of non-steroidal anti-inflammatories (NSAID); Z79.2 Long term (current) use of antibiotics; Z79.899 Other long term (current) drug therapy
CPT/HCPCS: 36415; 74176; 80048; 80076; 81003; 83690; 85025; 96374; 99285; J2765